=== PATIENT | male | born 1960 | race Caucasian/White ===

== ENCOUNTER 2017-02-14 06:49 | Observation (INO) | payer OTHER ==
[~2017-02-14] VITALS: Ht 172.7 cm; Wt 73.8 kg
[~2017-02-14 06:49] MED LIST: DICY10CA56 PO; PANT20T PO
[2017-02-14 06:52] VITALS: BP 154/88; PULSE 76; RESP 14; O2SAT 99
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
[2017-02-14] MEDS ORDERED: 0.9% Sodium Chloride 1,000 ML IV ONE (07:18)
[2017-02-14] MEDS ORDERED: HYDROmorphone 0.5 mg/0.5 mL iSecure Syringe IVPUSH PRN (07:20)
[2017-02-14] MEDS ORDERED: Ondansetron 2 mg/mL 2 mL Inj IVPUSH ONE (07:20)
[2017-02-14 08:15] LABS: BASOPHILS % (AUTO) 0.2 % (0-3); EOSINOPHILS % (AUTO) 0.7 % (0-5); MONOCYTES % (AUTO) 7.5 % (4-12); Mean Corpuscular Hemoglobin 31.1 pg (27.0-35.0); Mean Corpuscular Volume 90.4 fL (81-100); NEUTROPHILS % (AUTO) 68.8 % (40-74); Platelet Count 303 bil/L (150-400)
--- NOTE | 2017-02-14 09:13 | DRSVH ---
PROCEDURE: X-RAY ACUTE ABDOMINAL SERIES ([id number]) INDICATIONS: abdominal pain TECHNIQUE: One view chest and two views of the abdomen were acquired. COMPARISON: [facility], CT, CT ABD PELVIS W CON, 03/25/2016, 8:15. FINDINGS: Surgical changes and devices: None. Chest: Lungs are clear. Heart size is normal. No pleural effusions. No pneumoperitoneum. Abdomen: Bowel gas pattern is normal. No suspicious calcifications. Visualized solid organ contour s appear normal. Bones: No suspicious bony lesions. IMPRESSION: Normal bowel gas pattern. Dictated by: Sherman GALINDO Interpreted: Maryann Lane MD on 02/14/2017 at 9:12 Transcribed by: NEDA on 02/14/2017 at 9:12 Approved by: Maryann Lane M.D. on 02/14/2017 at 10:14
[2017-02-14] MEDS ORDERED: 0.9% Sodium Chloride 1,000 ML IV SCH ×2 (09:30→10:59)
[2017-02-14] MEDS ORDERED: LISI-571 PO (10:18)
[2017-02-14] MEDS ORDERED: GLIP10TA10 PO (10:18)
[2017-02-14] MEDS ORDERED: SITA100T12 PO (10:18)
[2017-02-14] MEDS ORDERED: DEXT5TAB29 PO (10:18)
[2017-02-14] MEDS: 0.9% Sodium Chloride 1,000 ML IV SCH ×2 (11:34→20:04)
[2017-02-14] MEDS ORDERED: Alum-Mag Hydrox-Simeth 30 mL Suspension PO PRN (11:35)
[2017-02-14] MEDS ORDERED: Polyethylene Glycol (PEG) 17 Gm Powder PO PRN (11:35)
[2017-02-14 11:47] VITALS: BP 179/89; PULSE 63; RESP 18; O2SAT 99
[2017-02-14] MEDS ORDERED: Glucose 40% Oral Gel 15 Gm Tube PO PRN (11:55)
[2017-02-14] MEDS ORDERED: Dextrose 10% 250 ML IV ONE (11:55)
--- NOTE | 2017-02-14 11:55 | PCM.HPMED ---
Subjective Date of Service Feb 14, 2017 Primary Provider: Admitting Physician: Vonda Perez DO Primary Care Physician: [facility] Attending Physician: Vonda Perez DO Admit Status: From the Emergency Department Chief Complaint: Left-sided abdominal pain History of Present Illness: Redd Smiley is a 56-year-old white male with past medical history of irritable bowel syndrome, diabetes, ADHD, traumatic brain injury presenting today with left-sided abdominal pain that has been ongoing for 4-7 days. He states that he has also been nauseated for 4 days as well. The pain started in the left upper quadrant but then radiated down into his left lower quadrant also radiating around into his thoracic spine and the left side. He does do physical work at his job but cannot think of anything quite unusual about his activities prior to the onset of pain. He is a current marijuana user. He takes some a very night before bedtime for her IBS-related pain. He states that he has been struggling with diabetes medications, had to stop metformin due to side effects. He usually has 5-6 bowel movements that are formed daily. He has not eaten well in 2 days (but also says was able to eat eggs, sausage, chicken soup, a chicken liane last night) he feels that eating is making his pain worse. He does not drink alcohol except on Fridays, on that day, he drinks 1-3 drinks every Tuesday, he denies use of any other recreational drugs, he is a former smoker. Patient denies hematochezia, hematemesis, he says he had no bowel movement in 4 days, thought he was constipated prior to coming to the ED. In the ER lipase is elevated 107, blood pressure was 154/88 glucose is 207; bilirubin is elevated at 1.3; troponin was negative; abdominal x-ray was negative for acute findings. 0.5 mg of IV Dilaudid brought his pain down from 8 out of 10 to a 3 out of 10. Review of Systems: Gen.: No recent weight gain or weight loss, patient denies fevers and malaise Eyes: no visual disturbances or blurring vision HEENT: No nose/throat drainage, no pain in ears or throat, no hearing loss Lymph: No lymph nodes noted Cardiac: No chest pain, orthopnea, PND, palpitations , pedal edema or dyspnea on exertion Pulmonary: Denies wheezing or bringing up of sputum worsening dyspnea and cough , left-sided chest pain GI: Endorsing anorexia, nausea, no vomiting, denies blood or black in the stool : no dysuria hematuria urinary frequency or decrease in urine output Musculoskeletal: Joint swelling no joint pain. Endorses Left flnk or lower thoracic pain Neuro: No syncope, seizures no loss of consciousness no new focal weakness, numbness or tingling Psychiatric: New new anxiety insomnia or depression Endocrine: No new heat or cold intolerances polyuria or polydipsia Hematology: No lymphadenopathy or easy bleeding or bruising noted skin: No new rashes, stasis dermatitis Review of systems negative except as stated in the history of present illness and except as stated above. Allergies Coded Allergies: Opioids - Morphine Analogues (Verified Adverse Reaction, Unknown, Nausea/ Vommiting, 02/14/17) Uncoded Allergies: OPIATES (Adverse Reaction, Unknown, pt states none of any kind-vomiting, 07/21) Home Medications The patient takes Januvia, glipizide, Adderall PMH IBS, hypertension, diabetes, ADHD, traumatic brain injury 2, depression, melanoma Surgical History Left knee, left small toe, nerve decompression surgery, appendectomy Family History Mother of complications from breast cancer dad of diabetes complications Brother history of melanoma in sister from heart disease and anxiety Social History Hx Alcohol Use: Yes ("Just on Tuesday night") Hx Substance Use: Yes (Marijuana for pain) Smoking Status: Former Smoker Living Arrangement: Alone Exam Vital Signs Vital Sign - Last Date Time Temp Pulse Resp B/P Pulse Ox O2 Delivery O2 Flow Rate FiO2 02/14/17 06:52 36.3 76 14 154/88 99 Room Air Exam Gen.: No acute distress moving around comfortably \\ HEENT: Normocephalic, atraumatic eyes appear to be injected mildly Heart: Regular rate and rhythm, no s3/s4 murmurs Lungs clear to auscultation no crackles or wheezes Abdomen: Tenderness or discomfort to right upper quadrant palpation tenderness over the rib cage and flank on the left side, normal bowel sounds nondistended Extremities: No edema or ecchymosis or erythema Vascular dorsalis pedis pulse is palpable 2 over 4 Psych: Negative for anxiety Neck: Trachea central, and negative for thyromegaly Psych: Negative for agitation and anxiety Skin: Warm and dry Lab and Diagnostics Result Diagram: 02/14/17 0753 02/14/17 075 X-Rays, CTs and MRIs [facility] Diagnostic [place] [address] Patient Name: REDD SMILEY MR#: [id number] Location: [facility] Ordering Phys: Slime Lazar MD Date of Service: 02/14/17717 PROCEDURE: X-RAY ACUTE ABDOMINAL SERIES ([id number]) INDICATIONS: abdominal pain TECHNIQUE: One view chest and two views of the abdomen were acquired. IMPRESSION: Normal bowel gas pattern. Dictated by: Sherman Faulkner RRA Interpreted: Maryann Lane MD on 02/14/2017 at 9:12 Transcribed by: NEDA on 02/14/2017 at 9:12 Approved by: Maryann Lane M.D. on 02/14/2017 at 10:14 Assessment & Plan Elevated Lipase, POA: Isolated lipase elevation likely due to marjuana vs hypertriglyceridemia vs celiac vs cholelithiasis/colic -- TTG IgA, IgG serum labs -- GGT serum -- Clear Liquid diet -- MRCP of abd to r/o pancreatitis, biliary obs -- RUQ U/S --HbA1C Abdominal pain and right-sided, POA: Also has anorexia and nausea -- Right upper quadrant ultrasound, if neg order a HIDA scan -- hydration with IV fluids -- pain control with morphine IV -- Monitor lipase and CMP -- Lipi d panel Right flank and rib pain: could be musculoskeletal -- Flexeril 10 mg 3 times a day when necessary -- Rib X-ray -- Physical therapy Diabetes: -- Low sliding scale -- A1C is ordered ADHD, chronic -- Adderall 5 milligrams daily Disposition: obs. Pain Evaluation: Adequate Pain Control Resuscitation Status: CPR: Attempt Resuscitation (brother is his [id number]) Time spent 40 min Vonda Perez DO Feb 14, 2017 11:42
[2017-02-14] MEDS ORDERED: Insulin LISPRO 300 Unit/3 mL Inj SUBQ SCH ×2 (12:00→13:14)
[2017-02-14] MEDS ORDERED: Dextrose 10% 250 ML IV PRN (12:25)
[2017-02-14] MEDS: Ondansetron 2 mg/mL 2 mL Inj IVPUSH PRN ×2 (12:38→20:05)
[2017-02-14] MEDS: Heparin 5,000 Unit/mL Inj SUBQ SCH ×2 (12:43→16:30)
[2017-02-14 13:26] VITALS: BP 173/88; PULSE 71; RESP 16
--- NOTE | 2017-02-14 14:06 | DRSVH ---
PROCEDURE: US ABDOMEN ([id number]) INDICATIONS: Abdominal pain, nausea. TECHNIQUE: Real-time scanning was performed of the abdominal and retroperitoneal organs, with image documentatio n. COMPARISON: [facility], CR, XR ABD ACUTE SERIES 3VW, 02/14/2017, 7:58. [facility], CT, CT ABD PELVIS W CON, 03/25/2016, 8:15. FINDINGS: Liver: Liver is normal in size and demonstrates diffuse increased echotexture. Gallbladder: No gallstones. No gallbladder wall thickening, pericholecystic fluid or sonographic Mu rphy's sign. Biliary ducts: Intrahepatic bile ducts are non-dilated. Extrahepatic bile duct caliber measures 4.7 mm. Normal is 6-7 mm or less in diameter, or 10 mm or less post-cholecystectomy. Pancreas: Visualized portions of the pancreas are sonographically normal. Spleen: Spleen is normal in size and homogeneous in echotexture. Kidneys: Kidneys are normal in size and echotexture. Right kidney measures 12.6 cm long; left kidne y measures 12.2 cm long. No hydronephrosis or nephrolithiasis. No solid masses. Small echogenic fo ci in renal medulla without shadowing bilaterally are noted. Aorta: Visualized aorta is normal in caliber at less than 3 cm. Iliacs: Proximal common iliac arteries are not visualized. IVC: Intrahepatic inferior vena cava is patent. Miscellaneous: No free abdominal fluid. IMPRESSION: 1. Small echogenic foci in kidneys bilaterally without shadowing, possibly representing small non-obs tructive renal calculi. No hydronephrosis. 2. Diffusely increased hepatic echotexture. This finding is most likely secondary to hepatic fatty i nfiltration although other hepatocellular disease may have a similar appearance. Recommend clinical c orrelation. Dictated by: Meghan Bradley M.D. on 02/14/2017 at 14:01 Approved by: Meghan Bradley M.D. on 02/14/2017 at 14:04
[2017-02-14 14:07] VITALS: BP 183/94; PULSE 66; RESP 18; O2SAT 99
[2017-02-14 17:44] VITALS: BP 193/92; PULSE 70; RESP 18; O2SAT 99
--- NOTE | 2017-02-14 18:01 | DRSVH ---
PROCEDURE: MR ABDOMEN MRCP INDICATIONS: LUQ pain, elev lipase TECHNIQUE: Coronal HASTE through the abdomen, axial 2-D FLASH in- and [id number], and breath-hold T2 FSE with fat saturation through the biliary system and pancreas. Oblique coronal and axial thin-slice HASTE, radial thick-slab HASTE centered on the extrahepatic bile ducts. Intravenous secretin: Not requested. COMPARISON: None. FINDINGS: Image quality: Excellent. Pancreas and biliary system: Intra- and extra-hepatic biliary ducts are non dilated. Pancreas is no rmal in morphology, without adjacent soft tissue edema. Pancreatic duct is normal in caliber, withou t developmental anomalies. Gallbladder is unremarkable. Other solid organs: Liver and spleen are normal in size. No adrenal nodules. Both kidneys are norm al in size, without hydronephrosis. Nodes and vessels: No retroperitoneal or mesenteric adenopathy by size criteria. Aorta and inferior vena cava are normal in size. Bowel and peritoneum: Unenhanced bowel loops are normal in caliber. No free fluid. Lung bases: No basal pleural effusions. Heart size is normal. Bones and soft tissues: No ventral hernias. Bone marrow is of normal overall signal. IMPRESSION: 1. Normal appearance of the common bile duct and pancreatic duct. No findings to suggest biliary obst ruction. 2. Normal appearance of the pancreas. No findings to suggest acute pancreatitis. Dictated by: Maryann Lane M.D. on 02/14/2017 at 17:57 Approved by: Maryann Lane M.D. on 02/14/2017 at 18:00
[2017-02-14] MEDS: Insulin LISPRO 300 Unit/3 mL Inj SUBQ SCH ×2 (18:46→21:22)
[2017-02-14 20:15] VITALS: BP 179/95; PULSE 71; RESP 18; O2SAT 99
--- NOTE | 2017-02-14 22:24 | DRSVH ---
PROCEDURE: X-RAY LEFT RIBS, TWO VIEWS ([id number]) INDICATIONS: pain in left side ribs TECHNIQUE: 2 views of the left ribs were acquired. COMPARISON: None. FINDINGS: Surgical changes and devices: None. Bones and chest wall: No fractures or dislocations. No suspicious bony lesions. Overlying soft tis sues appear unremarkable. Lungs and pleura: The visualized lung appears clear. No pleural effusions or pneumothorax are visib le. IMPRESSION: No displaced left rib fractures. Dictated by: Sherman Faulkner [facility] Interpreted: Meghan Bradley MD on 02/14/2017 at 13:39 Approved by: Meghan Bradley M.D. on 02/14/2017 at 22:22
[2017-02-15 00:31] VITALS: BP 131/75; PULSE 67; RESP 20; O2SAT 98
[2017-02-15] MEDS: Heparin 5,000 Unit/mL Inj SUBQ SCH ×3 (01:16→16:57)
[2017-02-15 05:47] LABS: BASOPHILS % (AUTO) 0.1 % (0-3); EOSINOPHILS % (AUTO) 0.8 % (0-5); MONOCYTES % (AUTO) 7.9 % (4-12); Mean Corpuscular Hemoglobin 30.7 pg (27.0-35.0); Mean Corpuscular Volume 90.6 fL (81-100); NEUTROPHILS % (AUTO) 67.7 % (40-74); Platelet Count 274 bil/L (150-400)
[2017-02-15 06:20] VITALS: BP 144/78; PULSE 65; RESP 20; O2SAT 100
[2017-02-15] MEDS: Insulin LISPRO 300 Unit/3 mL Inj SUBQ SCH ×4 (07:30→22:00)
[2017-02-15] MEDS: 0.9% Sodium Chloride 1,000 ML IV SCH ×2 (07:34→18:21)
[2017-02-15] MEDS: Pantoprazole 4 mg/mL 10 mL Inj IVPUSH SCH (07:47)
[2017-02-15 11:42] VITALS: BP 144/86; PULSE 69; RESP 18; O2SAT 100
--- NOTE | 2017-02-15 14:03 | DRSVH ---
PROCEDURE: NM HIDA SCAN WITH CCK PHARMACEUTICAL: 5.46 mCi Tc-99m mebrofenin IV; 1.5 mcg CCK IV. INDICATIONS: RIGHT UPPER QUADRANT PAIN. NAUSEA. TECHNIQUE: Following intravenous administration of Tc-99m mebrofenin, sequential anterior abdominal images were obtained. To evaluate the contractile response of the gallbladder in response to Cholecystokinin (CC K), sincalide (0.02 g/kg) was administered by slow intravenous infusion approximately 60 minutes aft er the administration of the radiopharmaceutical. Sequential imaging was continued for [address] the start of CCK infusion. Gallbladder ejection fraction was calculated. COMPARISON: [facility], MR, MR ABD MRCP, 02/14/2017, 17:00. [facility], US, US ABDOMEN, 02/14/2017, 12:08. FINDINGS: Biliary scan: There is normal tracer uptake and excretion by the liver. There is normal visualizati on of the intrahepatic ducts, common bile duct, and gallbladder. There is normal tracer transit into the duodenum. CCK stimulation: There is decreased contractile response of the gallbladder to CCK infusion. The ca lculated gallbladder ejection fraction is 12%; normal values are above 35%. The patient describes 2/10 (unchanged) pain during CCK administration.It has been shown that any uli ent abdominal pain after CCK administration is related to the rate of CCK injection, rather than to a ny underlying gallbladder disease (Clinical Nuclear Medicine 2012; 37: 63-70. Journal of Nuclear Med icine 2014; 55: 1-9). IMPRESSION: Abnormal gallbladder ejection fraction as above raising the possibility of chronic/acalculus cholecys titis. Recommend clinical and laboratory correlation. Dictated by: Britton Barajas M.D. on 02/15/2017 at 13:57 Approved by: Britton Barajas M.D. on 02/15/2017 at 14:01
[2017-02-15 14:13] VITALS: BP 149/74; PULSE 92; RESP 18; O2SAT 94
[2017-02-15 19:57] VITALS: BP 157/75; PULSE 78; RESP 20; O2SAT 99
--- NOTE | 2017-02-15 23:42 | PCM.PNMED ---
Subjective Date of Service Feb 15, 2017 Subjective PAtient states he had a small BM today, wants to eat. Not needing pain meds much. dEnies nausea/vomiting. Exam Vital Signs Vital Sign - Last Date Time Temp Pulse Resp B/P Pulse Ox O2 Delivery O2 Flow Rate FiO2 02/15/17 14:13 36.4 92 18 149/74 94 Room Air Intake and Output 02/14/17 02/14/17 02/15/17 Cumulative From/Thru 15:00 23:00 07:00 02/14/17 06:52 - 02/15/17 06:20 Intake Total 2000 ml 0 ml 2228 ml 4228 ml Output Total 700 ml 2100 ml 2800 ml Balance 2000 ml -700 ml 128 ml 1428 ml Intake Oral 0 ml 400 ml 400 ml IV Total 2000 ml 1828 ml 3828 ml Output Urine Total 700 ml 2100 ml 2800 ml # Bowel Movements 0 0 0 Exam General: NAD HEENT: NCAT Heart: RRR, no s3/s4 sounds Lungs: CTA, no crackles or wheezes Abd: Mild tenderness over RUQ, neg lloyd sign, non-tender today to L flank and LUQ deep palpation Ext: neg for edema Neck: trachea is central Psych: neg for anxiety and agitation IVs and Medications IV Fluids NSS 100 cc/hr Medications Reviewed: Medications were reviewed in detail Lab and Diagnostics Result Diagram: 02/15/17 0500 02/15/17 0500 X-Rays, CTs and MRIs [facility] Diagnostic [place] [address] Patient Name: GWENDOLYN SMILEY MR#: [id number] Location: [facility] Ordering Phys: Slime Lazar MD Date of Service: 02/14/1718 PROCEDURE: X-RAY ACUTE ABDOMINAL SERIES ([id number]) INDICATIONS: abdominal pain TECHNIQUE: One view chest and two views of the abdomen were acquired. IMPRESSION: Normal bowel gas pattern. Dictated by: Sherman Faulkner RRA Interpreted: Maryann Lane MD on 02/14/2017 at 9:12 Transcribed by: NEDA on 02/14/2017 at 9:12 Approved by: Maryann Lane M.D. on 02/14/2017 at 10:14 Assessment & Plan Elevated Lipase, POA: Isolated lipase elevation likely due to marjuana vs hypertriglyceridemia vs celiac vs cholelithiasis/colic vs HIV vs heaptitis -- TTG IgA, IgG serum labs: still pending -- GGT serum: neg -- Clear Liquid diet: Diet is advanced today to liquid diet low fat -- MRCP of abd to r/o pancreatitis, biliary obs: negative -- RUQ U/S: no cholelithiasis or cholecystits -- HbA1C 7.8 uncontrolled: Offer him glipizide -- HIDA scan revealed reduced EF: consulted Gen surg Dr. Perez, will see the pt for possible o/p f/.u Biliary Dyskinesia: --Gen Surg consult as above Abdominal pain and right-sided, POA: Also has anorexia and nausea. Resolved -- Right upper quadrant ultrasound, if neg order a HIDA scan: Results as above -- hydration with IV fluids -- pain control with morphine IV -- Monitor lipase and CMP -- Lipi d panel: WNL, will calculate ASCVD risk Right flank and rib pain: could be musculoskeletal or may have been caused by nephrolithiasis (MRCP showed stones) -- Filter urine: no stones found per nursing -- PAin resolved, he may have passed the stone. -- Flexeril 10 mg 3 times a day when necessary -- Rib X-ray: neg for fractures -- Physical therapy Diabetes: -- Low sliding scale -- A1C is ordered: 7.8 -- Will initiate glipizide vs invokana ADHD, chronic -- Adderall 5 milligrams daily Disposition: obs. PT may d/c home if feeling better tomorrow Pain Evaluation: Adequate Pain Control VTE Mechanical Devices: Intermittant Pneumatic CD Resuscitation Status: CPR: Attempt Resuscitation (brother is his [id number]) Time spent 30 min Vonda Perez DO Feb 15, 2017 19:03
--- NOTE | 2017-02-16 00:08 | CONS ---
[address] [address] CONSULTATION REPORT PATIENT: GWENDOLYN SMILEY : 1960 MR#: [id number] ADMIT: 02/14/2017 JOB ID: [id number] DATE OF SERVICE: 02/15/2017 CHIEF COMPLAINT: Abdominal pain. HISTORY OF PRESENT ILLNESS: The patient is a 56-year-old man with a known history of many years of irritable bowel syndrome. He presented to the emergency department with left-sided abdominal pain that had been going on for several days, as well as nausea. The pain radiates down his left lower side. He, again, has a longstanding history of irritable bowel syndrome with symptoms of cramping abdominal pain and multiple bowel movements per day. His workup here included imaging of the gallbladder, which was normal by ultrasound and MRCP. Following that, a HIDA scan was obtained because of his nausea and this showed normal uptake by the gallbladder, but the gallbladder ejection fraction was low at 12% after CCK infusion. PAST MEDICAL HISTORY: Irritable bowel syndrome, diabetes mellitus, ADHD, traumatic brain injury, depression, melanoma. PAST SURGICAL HISTORY: Left knee surgery, appendectomy, nerve decompression surgery. HOME MEDICATIONS: Januvia, glipizide, Adderall. ALLERGIES: OPIOIDS. SOCIAL HISTORY: He drinks alcohol on Tuesday nights only. He does use marijuana for irritable bowel syndrome. He is a former smoker. FAMILY HISTORY: Mother had breast cancer. Father had diabetes. He had a brother with melanoma. REVIEW OF SYSTEMS: A 10-point review of systems is negative, except as described in history of present illness. He has no blood in his stool and no unplanned weight loss. PHYSICAL EXAMINATION: Body mass index 24.7, temperature 36.6, pulse 78, blood pressure 157/75, saturation 99% on room air. In general, he is resting in bed in no acute distress. HEENT: Sclerae anicteric. Mucous membranes are moist. Neck: No lymphadenopathy. Chest: Clear to auscultation bilaterally. Heart: Regular rate and rhythm. No murmurs. Abdomen is soft, nontender, nondistended. He has a right lower quadrant appendectomy scar. There is no Sutton's sign. There are no palpable masses. Extremities: No edema. Neuro: No deficits. Psych: Affect is appropriate. LABORATORIES: White count is 8.3, hematocrit 45.1, platelets 274. Creatinine 0.82, glucose 167. Total bilirubin 1.8. AST 12, ALT 15, alkaline phosphatase 58, albumin 4.1. Lipase 62. IMAGING: As described in history of present illness. ASSESSMENT AND PLAN: A 56-year-old man with irritable bowel syndrome and possible biliary dyskinesia. I have reviewed with him the pathophysiology of biliary dyskinesia, which is relatively poorly understood and only considered a surgical diagnosis in the [place]. I do think that the reliability of a HIDA scan for biliary dyskinesia in the acute setting while taking narcotics is probably somewhat unreliable. I recommend that he follow up with me in the surgery clinic in a few weeks after his discharge and likely we will repeat the HIDA scan at that time off narcotics. He does state that he understands that cholecystectomy for biliary dyskinesia is not guaranteed to relieve his pain but, after living with irritable bowel syndrome for many years, he is willing to try anything that carries with it any possibility of improving his lifestyle. We will talk more about that in the outpatient setting. General Surgery will sign off for now and I plan to see him in a few weeks in my office.
[2017-02-16] MEDS: Heparin 5,000 Unit/mL Inj SUBQ SCH ×2 (00:45→08:37)
[2017-02-16] MEDS: 0.9% Sodium Chloride 1,000 ML IV SCH ×2 (04:08→13:34)
[2017-02-16 04:17] VITALS: BP 148/74; PULSE 61; O2SAT 98
[2017-02-16 05:10] LABS: Hepatitis A Antibody IgM Negative (Negative); Hepatitis B Core Antibody IgM Negative (Negative)
[2017-02-16] MEDS: Pantoprazole 4 mg/mL 10 mL Inj IVPUSH SCH (07:30)
[2017-02-16] MEDS: Insulin LISPRO 300 Unit/3 mL Inj SUBQ SCH ×2 (08:36→11:55)
[2017-02-16 08:40] VITALS: BP 146/71; PULSE 71; RESP 16; O2SAT 99
[2017-02-16 09:17] VITALS: BP 129/71; PULSE 79; RESP 18; O2SAT 98
[2017-02-16] MEDS ORDERED: PIOG15TA21 PO (14:49)
[2017-02-16] MEDS ORDERED: HYDR25TA4 PO (14:49)
[2017-02-16] MEDS ORDERED: OMEP20CA11 PO (14:52)
--- NOTE | 2017-02-16 14:54 | PCM.DIMED ---
Discharge Instructions Date of Service Feb 16, 2017 Dates of Hospitalization Feb 14, 2017 at 09:35 Discharge Diagnosis Discharge Diagnosis Biliary dyskinesia, nephrolithiasis, DM II Diet Discharge Diet: Low fat, Low Sodium, Heart Healthy, Diabetic Activity Discharge Activity: No restrictions, Limited until seen by PCP, Home Health Phyical Therapy, Outpatient Physical Therapy, Other Call your provider Call your provider for: Fever or Chills, Shortness of breath, Bleeding, Chest pain, Vomitting, Excessive diarrhea, Weakness (unilateral), Other Patient Instructions Patient Instructions Please eat low fat diet Please f/u with surgery for Biliary dyskinesia Please refrain from using [facility] Follow-up plan F/U with PCP in 2 weeks F/U with Dr. Raheem Perez, surgery in 2-3 weeks F/U BMP and Finger stick glucose prior to PCP visit Vonda Perez DO Feb 16, 2017 14:54
--- NOTE | 2017-02-16 14:55 | PCM.DC.MED ---
Discharge Summary Date of Service Feb 16, 2017 Dates of Hospitalization Date of Hospital Admission Feb 14, 2017 at 09:35 Date of Discharge: Feb 16, 2017 Providers: Admitting Physician: Vonda Alonzo DO Primary Care Physician: [place] Attending Physician: Vonda Alonzo DO Diagnosis at Time of Discharge Diagnosis at Time of Discharge Biliary dyskinesia, nephrolithiasis, DM II Consultations General Surgery Procedures XRay, CTs & MRIs Date of Service: 02/15/17 1526 PROCEDURE: NM HIDA SCAN WITH CCK INDICATIONS: RIGHT UPPER QUADRANT PAIN. NAUSEA. IMPRESSION: Abnormal gallbladder ejection fraction as above raising the possibility of chronic/acalculus cholecystitis. Recommend clinical and laboratory correlation. Dictated by: Britton Barajas M.D. on 02/15/2017 at 13:57 Approved by: Britton Barajas M.D. on 02/15/2017 at 14:01 ROCEDURE: MR ABDOMEN MRCP INDICATIONS: LUQ pain, elev lipase IMPRESSION: 1. Normal appearance of the common bile duct and pancreatic duct. No findings to suggest biliary obstruction. 2. Normal appearance of the pancreas. No findings to suggest acute pancreatitis. Dictated by: Maryann Lane M.D. on 02/14/2017 at 17:57 Approved by: Maryann Lane M.D. on 02/14/2017 at 18:00 PROCEDURE: X-RAY LEFT RIBS, TWO VIEWS ([id number]) INDICATIONS: pain in left side ribs TECHNIQUE: 2 views of the left ribs were acquired. COMPARISON: None. FINDINGS: Surgical changes and devices: None. Bones and chest wall: No fractures or dislocations. No suspicious bony lesions. Overlying soft tissues appear unremarkable. Lungs and pleura: The visualized lung appears clear. No pleural effusions or pneumothorax are visible. IMPRESSION: No displaced left rib fractures. Dictated by: Sherman Faulkner [facility] Interpreted: Meghan Bradley MD on 02/14/2017 at 13:39 Approved by: Meghan Bradley M.D. on 02/14/2017 at 22:22 PROCEDURE: US ABDOMEN ([id number]) INDICATIONS: Abdominal pain, nausea. IMPRESSION 1. Small echogenic foci in kidneys bilaterally without shadowing, possibly representing small non-obstructive renal calculi. No hydronephrosis. 2. Diffusely increased hepatic echotexture. This finding is most likely secondary to hepatic fatty infiltration although other hepatocellular disease may have a similar appearance. Recommend clinical correlation. Dictated by: Meghan Bradley M.D. on 02/14/2017 at 14:01 Approved by: Meghan Bradley M.D. on 02/14/2017 at 14:04 PROCEDURE: X-RAY ACUTE ABDOMINAL SERIES ([id number]) INDICATIONS: abdominal pain TECHNIQUE: One view chest and two views of the abdomen were acquired. COMPARISON: [facility], CT, CT ABD PELVIS W CON, 03/25/2016, 8:15. FINDINGS: Surgical changes and devices: None. Chest: Lungs are clear. Heart size is normal. No pleural effusions. No pneumoperitoneum. Abdomen: Bowel gas pattern is normal. No suspicious calcifications. Visualized solid organ contours appear normal. Bones: No suspicious bony lesions. IMPRESSION: Normal bowel gas pattern. Dictated by: Sherman Faulknre [facility] Interpreted: Maryann Lane MD on 02/14/2017 at 9:12 Transcribed by: NEDA on 02/14/2017 at 9:12 Approved by: Maryann Lane M.D. on 02/14/2017 at 10:14 Invasive Procedures none Brief History Redd Corona is a 56-year-old white male with past medical history of irritable bowel syndrome, diabetes, ADHD, traumatic brain injury presenting today with left-sided abdominal pain that has been ongoing for 4-7 days. He states that he has also been nauseated for 4 days as well. The pain started in the left upper quadrant but then radiated down into his left lower quadrant also radiating around into his thoracic spine and the left side. He does do physical work at his job but cannot think of anything quite unusual about his activities prior to the onset of pain. He is a current marijuana user. He takes some a very night before bedtime for her IBS-related pain. He states that he has been struggling with diabetes medications, had to stop metformin due to side effects. He usually has 5-6 bowel movements that are formed daily. He has not eaten well in 2 days (but also says was able to eat eggs, sausage, chicken soup, a chicken liane last night) he feels that eating is making his pain worse. He does not drink alcohol except on Fridays, on that day, he drinks 1-3 drinks every Tuesday, he denies use of any other recreational drugs, he is a former smoker. Patient denies hematochezia, hematemesis, he says he had no bowel movement in 4 days, thought he was constipated prior to coming to the ED. In the ER lipase is elevated 107, blood pressure was 154/88 glucose is 207; bilirubin is elevated at 1.3; troponin was negative; abdominal x-ray was negative for acute findings. 0.5 mg of IV Dilaudid brought his pain down from 8 out of 10 to a 3 out of 10. Hospital Course Elevated Lipase, POA: Isolated lipase elevation likely due to marjuana vs hypertriglyceridemia vs celiac vs cholelithiasis/colic vs HIV vs heaptitis -- TTG IgA, IgG serum labs: still pending -- GGT serum: neg -- Diet is advanced today to cardiac/diabetic -- MRCP of abd to r/o pancreatitis, biliary obs: negative -- RUQ U/S: no cholelithiasis or cholecystits -- HbA1C 7.8 uncontrolled: Offer him glipizide and pioglitazone -- HIDA scan revealed reduced EF: consulted Gen surg Dr. Alonzo, he has seen the patient. He will f/u o/p perhaps with a repeat HIDA -- Hep panel, HIV tests are negative -- I asked him to hold off on marjuana while we figure out the etiology. -- PCP may consider switching him to another agent from lisinopril if no resolution of symtoms -- PAtient is tolerating normal diet on the day of d/c, his pain has resolved. Biliary Dyskinesia: --Gen Surg consult as above Abdominal pain and right-sided, POA: Also has anorexia and nausea. Resolved -- Right upper quadrant ultrasound, if neg order a HIDA scan: Results as above -- hydration with IV fluids -- pain control with morphine IV -- Monitor lipase and CMP -- Lipi d panel: WNL Right flank and rib pain: could be musculoskeletal or may have been caused by nephrolithiasis (MRCP showed stones) -- Filter urine: no stones found per nursing -- Pain resolved, he may have passed the stone. -- Flexeril 10 mg 3 times a day when necessary -- Rib X-ray: neg for fractures -- Physical therapy Diabetes: -- Low sliding scale -- A1C is ordered: 7.8 -- Pt is asked to start pioglitazone 15 mg QD, cont glipizide home med ADHD, chronic -- Adderall 5 milligrams daily Exam Vital Signs (Last) Date Time Temp Pulse Resp B/P Pulse Ox O2 Delivery O2 Flow Rate FiO2 02/16/17 09:17 36.8 79 18 129/71 98 Room Air Exam General: NAD HEENT: NCAT Heart: RRR, no s3/s4 sounds Lungs: CTA, no crackles or wheezes Abd: No tenderness over RUQ, neg lloyd sign, non-tender today to L flank and LUQ deep palpation Ext: neg for edema Neck: trachea is central Psych: neg for anxiety and agitation Test 02/14/17 07:53 02/14/17 12:40 02/15/17 05:00 02/15/17 17:38 Hemoglobin A1c 7.8% (4.8-5.6) Magnesium Level 2.0mg/dL (1.6-2.6) Troponin T < 0.010ug/L (0.0-0.011) Hold Sanders Top Tube Received (Received) Gamma Glutamyl Transpeptidase 10IU/L (0-65) Tissue Transglutaminase IgG Ab <2U/mL (0-5) Tissue Transglutaminase IgA Ab <2U/mL (0-3) White Blood Count 8.3th/mm3 (3.8-10.1) Red Blood Count 4.98mil/mm3 (4.40-5.80) Hemoglobin 15.3g/dL (13.8-17.2) Hematocrit 45.1% (41.0-50.0) Mean Corpuscular Volume 90.6fL (81-100) Mean Corpuscular Hemoglobin 30.7pg (27.0-35.0) Mean Corpuscular Hemoglobin Concent 33.9% (32.0-37.0) Red Cell Distribution Width 12.5% (12.3-15.4) Platelet Count 274bil/L (150-400) Neutrophils (%) (Auto) 67.7% (40-74) Lymphocytes (%) (Auto) 23.4% (14-46) Monocytes (%) (Auto) 7.9% (4-12) Eosinophils (%) (Auto) 0.8% (0-5) Basophils (%) (Auto) 0.1% (0-3) Triglycerides Level 148mg/dL (0-149) Cholesterol Level 125mg/dL (100-199) LDL Cholesterol, Calculated 54.400mg/dL (0-99) VLDL Cholesterol 29.600mg/dL HDL Cholesterol 41mg/dL (>39) Cholesterol/HDL Ratio 3.05 (0.0-4.4) Hepatitis A IgM Antibody Negative (Negative) Hepatitis B Surface Antigen Negative (Negative) Hepatitis B Core IgM Antibody Negative (Negative) Hepatitis C Antibody <0.1s/co ratio (0.0-0.9) Hepatitis C Comment Comment (.) HIV (1&2) Ag and Ab, 4th Generation Non reactive (Non Reactive) Test 02/16/17 05:15 Sodium Level 138mEq/L (134-144) Potassium Level 4.3mEq/L (3.5-5.2) Chloride Level 102mEq/L (97-108) Carbon Dioxide Level 22mmol/L (18-29) Blood Urea Nitrogen 10mg/dL (6-24) Creatinine 0.83mg/dL (0.76-1.27) Estimat Glomerular Filtration Rate 102mL/min (>59) Glucose Level 193mg/dL (60-99) Calcium Level 9.3mg/dL (8.5-10.1) Total Bilirubin 1.8mg/dL (0.0-1.2) Aspartate Amino Transf (AST/SGOT) 13U/L (0-50) Alanine Aminotransferase (ALT/SGPT) 16U/L (0-44) Alkaline Phosphatase 58U/L (25-150) Total Protein 6.1g/dL (6.4-8.4) Albumin 3.9g/dL (3.4-5.0) Lipase 46U/L (13-60) Discharge Medications Discharge Medications Dextroamphetamine/Amphetamine (Amphetamine Mixed Salts) 5 Mg Tablet 5 MG PO DAILY (Reported) Glipizide (Glipizide) 10 Mg Tablet 10 MG PO BID (Reported) Hydrochlorothiazide (Hydrochlorothiazide) 25 Mg Tablet 25 MG PO DAILY Prescribed by: VONDA ALONZO DO Lisinopril (Lisinopril) 5 Mg Tablet 5 MG PO DAILY (Reported) Omeprazole (Omeprazole) 20 Mg Capsule.dr 20 MG PO DAILY Prescribed by: VONDA ALONZO DO Pioglitazone (Pioglitazone) 15 Mg Tablet 15 MG PO DAILY Prescribed by: VONDA ALONZO DO Followup Plan Follow-up plan F/U with PCP in 2 weeks F/U with Dr. Raheem Alonzo, surgery in 2-3 weeks F/U BMP and Finger stick glucose prior to PCP visit Discharge Diet: Low fat, Low Sodium, Heart Healthy, Diabetic Discharge Activity: No restrictions, Limited until seen by PCP, Home Health Phyical Therapy, Outpatient Physical Therapy, Other Patient Instructions Please eat low fat diet Please f/u with surgery for Biliary dyskinesia Please refrain from using marjuana Time spent > 30 min Vonda Alonzo DO Feb 16, 2017 14:55
== END 2017-02-16 15:34 | disposition home or self-care (01) ==
LOC: SED 06:49 → INTOOBSV 09:35 → OSC 09:35
PROVIDERS: ADMIT Family Medicine; ATTEND Family Medicine
DX: K82.8 Other specified diseases of gallbladder (principal); N20.0 Calculus of kidney; E11.9 Type 2 diabetes mellitus without complications; K58.9 Irritable bowel syndrome, unspecified; F90.9 Attention-deficit hyperactivity disorder, unspecified type; Z87.820 Personal history of traumatic brain injury; I10 Essential (primary) hypertension; F32.9 Major depressive disorder, single episode, unspecified; N40.0 Benign prostatic hyperplasia without lower urinary tract symptoms; F12.90 Cannabis use, unspecified, uncomplicated; Z85.820 Personal history of malignant melanoma of skin; Z87.891 Personal history of nicotine dependence; Z79.84 Long term (current) use of oral hypoglycemic drugs
CPT/HCPCS: 36415; 71100; 74022; 74181; 76700; 78227; 80053; 80061; 82274; 82977; 83036; 83516; 83690; 83735; 84484; 85025; 86705; 86709; 87340; 87341; 93005; 96361; 96374; 96375; 96376; 99285; A9537; G0378; G0433; G0472; J1170; J1644; J1815; J2270; J2405; J2805; J7030

== ENCOUNTER 2017-02-22 06:33 | Emergency (ER) | payer OTHER ==
[~2017-02-22] VITALS: Ht 172.7 cm; Wt 72.7 kg
[~2017-02-22 06:33] MED LIST changes: +DEXT5TAB29 PO; -DICY10CA56 PO; +GLIP10TA10 PO; +HYDR25TA4 PO; +LISI-571 PO; +OMEP20CA11 PO; -PANT20T PO; +PIOG15TA21 PO
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
[2017-02-22 06:39] VITALS: BP 164/82; PULSE 71; RESP 16; O2SAT 100
[2017-02-22] MEDS ORDERED: Ondansetron 2 mg/mL 2 mL Inj IVPUSH PRN (06:50)
[2017-02-22] MEDS ORDERED: 0.9% Sodium Chloride 1,000 ML IV ONE (06:50)
[2017-02-22 07:40] LABS: BASOPHILS % (AUTO) 0.3 % (0-3); EOSINOPHILS % (AUTO) 1.3 % (0-5); MONOCYTES % (AUTO) 7.1 % (4-12); Mean Corpuscular Volume 90.1 fL (81-100); NEUTROPHILS % (AUTO) 62.6 % (40-74); Platelet Count 286 bil/L (150-400)
[2017-02-22 08:02] LABS: Magnesium 2.1 mg/dL (1.6-2.6)
[2017-02-22 08:04] LABS: APPEARANCE,URINE HAZY (CLEAR,HAZY); COLOR,URINE STRAW (YELLOW); OCCULT BLOOD,URINE NEGATIVE (NEGATIVE); UROBILINOGEN,URINE NORMAL (NORMAL)
[2017-02-22] MEDS ORDERED: NPR500T PO (08:20)
[2017-02-22] MEDS ORDERED: ONDA4TAB9 PO (08:20)
[2017-02-22 08:40] VITALS: BP 156/71; PULSE 62; RESP 14; O2SAT 100
--- NOTE | 2017-02-22 09:55 | DRSVH ---
PROCEDURE: CT KUB ([id number]) INDICATIONS: left flank pain TECHNIQUE: Noncontrast 5 mm thick sections acquired from the diaphragms to the symphysis. 5 mm thick coronal an d sagittal reformats were then performed. For radiation dose reduction, the following was used: aut omated exposure control, adjustment of mA and/or kV according to patient size. COMPARISON: None. FINDINGS: Image quality: Excellent. Lung bases: Lung bases are clear. Heart size is normal. Urinary system: Both kidneys are normal in size. No kidney stones. No hydronephrosis or perinephri c fat stranding. There is a nonspecific left renal cortical hypodensity image 31, too small to charac terize definitely measuring 7 mm. Both ureters appear non-dilated throughout their expected courses. Bladder wall thickness is normal ; no calcified bladder stones. Other solid organs: Liver and spleen are normal in size. Gallbladder negative. Pancreas is normal in contours. No adrenal nodules. Peritoneum and bowel: Unenhanced bowel loops demonstrate normal wall thickness and caliber. No free fluid or air. Incidentally noted colonic diverticulosis without evidence of acute complication. The re is moderate stool. Appendix not visualized although no suspicious pericecal inflammatory changes. Rectum is decompressed otherwise unremarkable. Nodes and vessels: No retroperitoneal or mesenteric adenopathy by size criteria. Aorta and inferior vena cava are normal in caliber. Abdominal wall: No ventral hernias. Pelvis: No free pelvic fluid. Small fat-containing right inguinal hernia. No pelvic adenopathy by si ze criteria.. Bones: No suspicious bony lesions. No vertebral body compression fractures. IMPRESSION: No urolithiasis nor evidence of urinary obstruction. Incidental colonic diverticulosis without evidence of acute inflammation. Elsewhere, no acute abnormality identified. Dictated by: Britton Barajas M.D. on 02/22/2017 at 9:44 Approved by: Britton Barajas M.D. on 02/22/2017 at 9:54
== END 2017-02-22 08:41 | disposition home or self-care (01) ==
LOC: SED 06:33
DX: R10.12 Left upper quadrant pain (principal); I10 Essential (primary) hypertension; E11.9 Type 2 diabetes mellitus without complications; Z87.820 Personal history of traumatic brain injury; Z85.820 Personal history of malignant melanoma of skin; Z87.891 Personal history of nicotine dependence; Z88.8 Allergy status to other drugs, medicaments and biological substances; Z79.899 Other long term (current) drug therapy
CPT/HCPCS: 36415; 74176; 80053; 81000; 83690; 83735; 85025; 96361; 96374; 96375; 99285; J1885; J2405; J7030

== ENCOUNTER → 2017-04-04 | Day surgery (SDC) | payer OTHER ==
[2017-04-04] VITALS (9 sets, daily range): BP systolic 144–189; BP diastolic 61–85; PULSE 53–67; RESP 18–33; O2SAT 97–100
[~2017-04-04] VITALS: Ht 172.7 cm; Wt 71.6 kg
[~2017-04-04] MED LIST changes: +Atropine 0.4 mg/mL Inj IVPUSH PRN; +Bupivacaine-MPF 0.5% W/EPI 30 mL Inj INFILTRATE ONE; +CeFAZolin 2 Gm/50 mL D5W Duplex Bag IV ONE; +CeFAZolin Inj 2 GM in Dextrose 5% 50 ML IV ONE; +Dexamethasone 4 mg/mL Inj ONE; +EPHEDrine Sulfate 50 mg/mL Inj IVPUSH PRN; +Glycopyrrolate 0.2 MG/ML 1mL Inj ONE; -HYDR25TA4 PO; +HYDROmorphone 1 mg/mL Inj IVPUSH PRN; +Labetalol 5 mg/mL 4 mL Inj IV PRN; +Lactated Ringer's 1,000 ML IV ONE; +Lactated Ringer's 1,000 ML IV SCH; +Lactated Ringer's 500 ML IV PRN; +MetoCLOpramide 5 mg/mL 2 mL Inj IVPUSH PRN; +NPR500T PO; +Neostigmine 1 mg/mL 10 mL Inj ONE; -OMEP20CA11 PO; +Ondansetron 2 mg/mL 2 mL Inj IVPUSH PRN; +Ondansetron 2 mg/mL 2 mL Inj ONE; -PIOG15TA21 PO; +Phenylephrine 10,000 mCg/mL Inj IVPUSH PRN; +Propofol 10,000 mCg/mL 20 mL Inj ONE; +Rocuronium 10 mg/mL 5 mL Inj ONE; +SITA100T12 PO; +fentaNYL-PF 50 mCg/mL 2 mL Inj ONE
--- NOTE | 2017-04-04 08:38 | PCM.HPANE ---
Patient Data Surgeon Admitting Provider: Attending Provider:Eddi Perez MD Primary Care Physician:Collin Hills Other Provider:Mu Santos Anesthesia Reason for Visit Peristant Low Gall Bladder Ejection Fraction Ht/WT & BMI Height (Feet): 5 Height (Inches): 8.00 Weight (Kilograms): 71.600 Body Mass Index 23.00 Allergies Coded Allergies: Opioids - Morphine Analogues (Verified Adverse Reaction, Unknown, Nausea/ Vommiting, 03/31/17) codeine (Verified Adverse Reaction, Unknown, nausea and vomiting, 03/31/17) Uncoded Allergies: OPIATES (Adverse Reaction, Unknown, pt states none of any kind-vomiting, 07/21) Past Anesthesia History Anesthesia History: Denies:: Abnormal Airway, Anesthesia Reactions, Difficult Intubation, Fam Anesthesia Reaction, Fam Malignant Hypertherm, Malignant Hyperthermia Diabetes History Hx Diabetes?: Yes Type of Diabetes: Type II Glycemic Control: Oral Medication Current Bedside Blood Glucose: 175 MRSA MRSA: No Medications Hypertension Medication: Yes (Lisinopril) Home Meds Incl Beta Behzad: No Reported Medications Sitagliptin Phos (Januvia)100 Mg [id number] Mg PO DAILY Ref 0 03/31/17 Dextroamphetamine/Amphetamine (Amphetamine Mixed Salts)5 Mg Tablet5 Mg PO DAILY #30 02/14/17 Lisinopril 5 Mg Tablet5 Mg PO DAILY #30 02/14/17 Glipizide 10 Mg Yuvzcr48 Mg PO BID #60 02/14/17 Discontinued Reported Medications Cephalexin 500 Mg Yhyouxq936 Mg PO BID #40 CAPSULE Ref 0 03/31/17 Discontinued Scripts Naproxen 500 Mg Ocp417 Mg PO BID PRN For Pain #10 TABLET Prov:Brennen Kaplan DO 02/22/17 Ondansetron ODT (Zofran ODT)4 Mg Tablet4 Mg PO Q4H PRN For Nausea #10 TABLET Prov:Brennen Kaplan DO 02/22/17 Omeprazole 20 Mg Capsule.dr20 Mg PO DAILY 14 Days Ref 0 Prov:Vonda Perez DO 02/16/17 Pioglitazone 15 Mg Xarkhr98 Mg PO DAILY 14 Days Ref 0 Prov:Vonda Perez DO 02/16/17 Hydrochlorothiazide 25 Mg Sxkpnz97 Mg PO DAILY 30 Days Prov:Vonda Perez DO 02/16/17 Last Time Dose Received No meds today History History of ENT Problems?: No HEENT History: Positive for:: Sinus Problem (allergy related) Denies:: Abnormal Airway Cataracts Difficult Intubation Dysphagia Glaucoma Hearing Problem TMJ Denture Type: None Teeth Condition: Within Normal Limits Hx of Heart Problems?: Yes Cardiovascular History: Positive for:: Hypertension Peripheral Vascular (toes) Denies:: AICD Abdominal Aortic Aneurism Atrial Fibrillation Cardiac Surgery Chest Pain Congestive Heart Failure Coronary Artery Disease Edema Heart Murmur Irregular Heartbeat Pacemaker Rheumatic Fever Thrombophlebitis Valvular Heart Disease Hx of Respiratory Problem?: No Respiratory History: Positive for:: Cough (winter) Denies:: Asthma COPD Chest Surgery Dyspnea Emphysema Hemoptysis Oxygen Administration Pneumonia Pulmonary Embolism Tuberculosis Use of C-PAP Machine Use of Inhalers / NEBS Hx Neurologic Problems?: Yes Neurological History: Positive for:: Headaches (TBI ) Denies:: Alzheimer's Disease CVA Dementia Dizziness Multiple Sclerosis Parkinson's Disease Seizures TIA Hx of GI Problems?: Yes Other GI Pertinent History: History of IBS Hx of Problems?: No Genitourinary History: Positive for:: Kidney Stones Male Hx: Positive for:: Prostate Problems (BPH) Denies:: Scrotal Mass Testicular Surgery Skin History: Denies:: History Skin Disorders? 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 Denies:: Blood Transfusions Hx Diabetes: YesBedside Blood Glucose: 175 Hx Alcohol Use: Yes ("Just on Tuesday night")Hx Substance Use: Yes (Marijuana for pain) Smoking Status: Former Smoker Have You Smoked inLast 12 mo: Yes (tracey) Stop/Bang S-Snoring: Do You Snore Loudly: No T-Tired: feel tired, fatigued: No O-Obsered: Observed not breath: No P-Blood Pressure: treated: Yes B- Body Mass Index > 35 kg/m2: No A- Age over 50: Yes N- Neck Large Circumference: No G- Gender Male: Yes TRISTEN Total Score: 3 Risk Assessment Category Category 1A: Patient has history of documented sleep apnea, and HAS NOT received any narcotic, sedative or anesthesia administration during this stay. Category 1B: Patient has history of documented sleep apnea, and HAS received any narcotic , sedative or anesthesia administration during this stay Category 2: Patient has SUSPECTED Obstructive Sleep Apnea, and HAS received any narcotic , sedative or anesthesia administration during this stay. Category 3: Patient has SUSPECTED Obstructive Sleep Apnea and HAS NOT received narcotic, sedative or anesthesia administration during this stay. Category 4: Outpatient in Procedural Areas with known sleep apnea or who screen positive for High Risk via the STOP/BANG questionnaire. Exam Exam Vital Signs Vital Signs Date Time Temp Pulse Resp B/P Pulse Ox O2 Delivery O2 Flow Rate FiO2 04/04/17 07:45 36.1 67 18 145/76 97 Room Air General Appearance: Alert, Oriented X3 HEENT/AIRWAY: MP 2, Neck Movement (FROM) Lungs: Clear to Auscultation, Clear to Percussion Heart: Exam Unremarkable, Regular Rate/Rhythm Meds/Labs/Diagnostics Admission Meds Current Medications Lactated Ringer's (Lr) 1,000 ml @ 120 mls/hr Q8H20M ONCE IV Last administered on 04/04/17t 07:35; Start 04/04/17 at 05:00; Stop 04/04/17 at 13:19 Bedside Blood Glucose: 175 Plan Impression Patient chart reviewed, patient interviewed and anesthestic plan with risks, benefits, and alternatives discussed, and informed consent obtained. ASA Physical Status: ASA2 Mod Systemic Disease Anesthetic Plan: GA Bene/Risks/Altern/Consents: Yes HP Complete Prior to Induction: Yes Other Patient states he can tolerate opiates but only at low doses. Plan will be for multi-modal pain control with low dose opiates Waldemar Dhaliwal MD Apr 04, 2017 08:06
--- NOTE | 2017-04-04 09:40 | PCM.SURGOP ---
Surgical Operative Report Date of Service: Apr 04, 2017 Pre Operative Diagnosis Biliary dyskinesia Post Operative Diagnosis Same Procedure: Laparoscopic cholecystectomy Surgeon and Imaging Tech: Surgeon: Eddi Perez MD Assistants: Venkatesh Medina MD PGY-3 Indication for Procedure 56-year-old man who was admitted to the hospital with nausea and abdominal pain , and had a gallbladder ejection fraction which was low. That was repeated in the outpatient setting, and again his bladder ejection fraction was low consistent with biliary dyskinesia. He continued to have right upper quadrant pain as well as nausea. After discussion of risks and benefits, he agreed to proceed with laparoscopic cholecystectomy. Findings: The gallbladder was grossly normal. Procedure Details After smooth induction of general endotracheal anesthesia, the patient was placed in the supine position with the right arm tucked. A procedural pause was performed according to the SCOAP checklist, and all were found to be in agreement. A curvilinear infraumbilical incision was made. Dissection was carried down with electrocautery until the midline fascia was incised vertically, and the peritoneal cavity entered without difficulty. Pneumoperitoneum was established. Inspection revealed a fairly normal-appearing gallbladder. 3 additional ports were placed under direct visualization. One was placed in the midline epigastrium, and 2 in the right subcostal region. The fundus of the gallbladder was then grasped and retracted cephalad. The infundibulum of the gallbladder was grasped. The peritoneum was incised. The cystic artery was doubly clipped and divided. The critical view was obtained using the infundibular technique. A cholangiogram was not performed because he did not have gallstones, and the cystic duct looked normal. 2 clips were placed on the common bile duct side of the cystic duct, and one clip on the gallbladder side, and the duct was divided with scissors. The remainder of the gallbladder was dissected out of the gallbladder fossa with electrocautery. The gallbladder was placed into an Endo Catch bag and removed from the umbilical port site. It was passed off the field and sent for permanent pathology. The gallbladder fossa was inspected and irrigated. Hemostasis was adequate, and there was no bile leak. The ports were removed under direct visualization and pneumoperitoneum was released. The fascia of the umbilical port site was closed using an 0 Vicryl suture in a [id number]. The skin incisions were closed using running 4-0 Monocryl subcuticular stitches. Steri-Strips and sterile dressings were applied. At the end of the case all needle and sponge counts were correct 2. The patient was awakened from anesthesia without difficulty, and taken to the recovery room in satisfactory condition, having tolerated the procedure well. Complications There were no periprocedural complications identified. Surgical Specimen Removed: Yes Specimen sent to Pathology: Yes Surgical Specimen description: Gallbladder Anesthetic Plan: GA Grafts, Implants: None Output, Estimated Blood Loss: 20 Blood Administration during nation: No Drains: None Catheters: None copies to: Collin Hills Joshua D MD Apr 04, 2017 09:40
--- NOTE | 2017-04-04 09:56 | PCM.DISURG ---
Surgical Discharge Instruction Date of Service Apr 04, 2017 Dates of Hospitalization Date of Hospital Admission Providers Admitting Physician: Primary Care Physician: Collin Hills Attending Physician: Eddi Perez MD Discharge Diagnosis Discharge Diagnosis Biliary dyskinesia Post Operative diagnosis Same Diet Discharge Diet: No restrictions Activity Discharge Activity-General: Be up and about, Activity as pain allows, No lifting >15 pounds for 2 weeks, No driving while taking narcotic Dressing and Incisional Care Dressing Care: Allow Steri Stripes to fall off, Remove outer dressing after 24 hrs Hygiene: May shower after (24 hours), DO NOT soak incision under water, NO bathtub, hot tub or whirlpool Follow Up Plan Follow Up Plan Follow up in the general surgery clinic in the next 2-4 weeks. Call at any time with questions or concerns. Call your provider for: Fever, Chills, Increasing abdominal pain, Nausea, Vomiting, Wound redness, Increasing wound pain Kush Medina MD Apr 04, 2017 09:56
[2017-04-04] MEDS: fentaNYL-PF 50 mCg/mL 2 mL Inj IVPUSH PRN ×2 (10:20→10:31)
--- NOTE | 2017-04-04 10:22 | PCM.ANEP1 ---
Post Anesthesia PACU Phase 1 Assessment Vital Signs Vital Signs Date Time Temp Pulse Resp B/P Pulse Ox O2 Delivery O2 Flow Rate FiO2 04/04/17 10:05 53 24 147/66 97 Room Air 04/04/17 09:55 56 27 158/85 97 Room Air 04/04/17 09:50 60 30 166/71 100 Simple Mask 10 04/04/17 09:47 36.4 67 33 189/75 Simple Mask 10 04/04/17 07:45 36.1 67 18 145/76 97 Room Air Anesthetic Administered: GA Level of Alertness: Awake, talking VELEZ's with Equal Strength: Yes Pain: No Nausea or Vomiting: No CV Function & Hydration Stable: Yes Airway Device: Oxygen Delivery: Simple Mask Lungs: Clear to Auscultation, Clear to Percussion PACU Phase 2 Assessment Complications: No Follow up Care: No Patient Instructions Provided: N/A Waldemar Dhaliwal MD Apr 04, 2017 10:22
--- NOTE | 2017-04-06 16:46 | PATH ---
SURGICAL PATHOLOGY Attending Physician:Jaya Livingston CASE STATUS: Signed Out PATIENT NAME: GWENDOLYN SMILEY PID: [id number] : 1960 DATE COLLECTED:04/04/2017 15:20 SPECIMEN: Gallbladder CLINICAL HISTORY: PERSISTENT LOW GALLBLADDER EJECTION FRACTION 1). GALLBLADDER FINAL DIAGNOSIS: 1.GALLBLADDER, LAPAROSCOPIC CHOLECYSTECTOMY: GALLBLADDER WITH MILD CHRONIC CHOLECYSTITIS AND CHOLESTEROLOSIS. ICD10 K81.9 GROSS DESCRIPTION: The specimen is received in one formalin filled container labeled with the patient's name, sublabeled "gallbladder" and consists of an opened 7.0 x 2.5 x 1.0 CM gallbladder. The serosa is smooth. The wall is 0.2-0.3 CM in thickness. The mucosa is a green nuñez in color. The lumen contains a light green mucoid material and no calculus are noted. 5 service representative sections are submitted in one cassette. 04/04/2017DC MICRO DESCRIPTION: See diagnosis. ICD-9 CODES: CPT CODES: 1: 31344 Electronically Signed Out Amrita Hardy MD [facility] [address], [place] [address] Technical component performed at [facility], [facility] [address], [place], [address]
== END | disposition home or self-care (01) ==
LOC: SAS 07:30
PROVIDERS: ATTEND Student in an Organized Health Care Education/Training Program
DX: K81.1 Chronic cholecystitis (principal); K82.4 Cholesterolosis of gallbladder; K82.8 Other specified diseases of gallbladder; K57.30 Diverticulosis of large intestine without perforation or abscess without bleeding; R10.13 Epigastric pain; I10 Essential (primary) hypertension; E78.5 Hyperlipidemia, unspecified; I73.9 Peripheral vascular disease, unspecified; E11.9 Type 2 diabetes mellitus without complications; F32.9 Major depressive disorder, single episode, unspecified; N40.0 Benign prostatic hyperplasia without lower urinary tract symptoms; K58.9 Irritable bowel syndrome, unspecified; F12.90 Cannabis use, unspecified, uncomplicated; Z79.84 Long term (current) use of oral hypoglycemic drugs; Z87.891 Personal history of nicotine dependence; Z87.442 Personal history of urinary calculi
CPT/HCPCS: 47562; J0690; J1100; J2405; J2710; J3010; J7120